=== PATIENT | male | born 1970 | race Caucasian/White ===

== ENCOUNTER 2020-09-06 06:58 | Outpatient (REF) | payer OTHER, SELFPAY ==
[2020-09-06 11:28] LABS: Estimated Average Glucose 318 mg/dL; Hemoglobin A1c % 12.7 %
[2020-09-06 11:46] LABS: Alanine Aminotransferase 9 U/L (0-40); Anion Gap 15 (12-20); Aspartate Amino Transferase 17 U/L (5-37); Blood Urea Nitrogen 55 mg/dL (9-16); Calcium 8.6 mg/dL (8.4-10.2); Carbon Dioxide 24 mmol/L (22-29); Chloride 105 mmol/L (96-108); Cholesterol 266 mg/dL; Estimated Glomerular Filt Rate 34; Glucose Fasting 269 mg/dL (60-99); HDL Cholesterol 54 mg/dL; LDL Cholesterol Calculated 139 mg/dl; Potassium 5.1 mmol/l (3.3-5.1); Sodium 139 mmol/L (135-145); Triglycerides 367 mg/dL
== END 2020-09-06 06:59 | disposition home or self-care (01) ==
LOC: HO.HMGCLDS 06:58
PROVIDERS: PCP Internal Medicine; Visit Provider Internal Medicine
DX: E11.21 Type 2 diabetes mellitus with diabetic nephropathy (principal); E11.3393 Type 2 diabetes mellitus with moderate nonproliferative diabetic retinopathy without macular edema, bilateral; E78.2 Mixed hyperlipidemia; Z79.4 Long term (current) use of insulin
CPT/HCPCS: 36415; 80048; 80061; 83036; 84450; 84460

== ENCOUNTER 2020-12-04 02:59 | Emergency (ER) | payer OTHER, SELFPAY ==
--- NOTE | ~2020-12-04 | XR_ITS ---
EXAMINATION: CHEST 2 VIEWS CLINICAL INFORMATION: Aspiration. COMPARISON: None. TECHNIQUE: PA and lateral views of the chest were obtained. FINDINGS: The cardiac silhouette is not enlarged. The mediastinal and hilar contours are unremarkable. There are neither pleural effusions nor pneumothoraces. There are no consolidations. The osseous structures are unremarkable. XR/XR chest 2V IMPRESSION: No evidence for acute disease.
[2020-12-04 03:00] VITALS: BP 199/85; PULSE 100; RESP 18; TEMP 35.8; O2SAT 99; BMI 37.1
[2020-12-04 04:24] LABS: COVID-19 Test Negative (Negative); IDNOW Serial# 9DD0AD1C
--- NOTE | 2020-12-04 04:38 | ED.GENADULT ---
HPI - General Adult General Chief complaint: General Medical Stated complaint: Cough Time Seen by Provider: 12/04/20 03:24 Source: patient Mode of arrival: ambulatory Limitations: no limitations History of Present Illness HPI narrative: Patient comes emergency room complaining of mild cough, and requesting a COVID-19 test. Patient states that yesterday he started coughing, got Robitussin, states it did help with the cough. However he has sensation that he has parade it and decided to come get checked. Patient denies shortness of breath. Patient states that he has a chronic cough from his lisinopril. MD complaint: Cough Related Data Home Medications Medication Instructions Recorded Confirmed blood sugar diagnostic #10 ea 07/13/20 10/01/20 insulin lispro 100 unit/mL unit SUBCUT 07/13/20 10/01/20 subcutaneous pen pen needle, diabetic 31 gauge x #50 ea 07/13/20 10/01/20 3/16 insulin glargine 100 unit/mL (3 30 unit SUBCUT QAM ml 08/26/20 10/01/20 mL) subcutaneous pen Previous Rx's Medication Instructions Recorded amoxicillin 875 mg-potassium 1 tab PO BID 5 Days #10 tab 07/13/20 clavulanate 125 mg tablet atorvastatin 20 mg tablet 20 mg PO DAILY #90 tab 08/26/20 blood sugar diagnostic #100 ea 08/26/20 chlorthalidone 25 mg tablet 25 mg PO QAM #90 tab 08/26/20 dulaglutide 0.75 mg/0.5 mL 0.75 mg SUBCUT QWEEK #2 ml 08/26/20 subcutaneous pen injector insulin glargine 100 unit/mL (3 30 unit SUBCUT BEDTIME #15 ml 08/26/20 mL) subcutaneous pen lisinopril 10 mg tablet 10 mg PO DAILY #90 tab 08/26/20 amoxicillin 875 mg-potassium 1 tab PO BID #20 tab 10/01/20 clavulanate 125 mg tablet Allergies Allergy/AdvReac Type Severity Reaction Status Date / Time No Known Allergies Allergy Verified 10/01/20 11:01 Review of Systems Review of Systems: Constitutional : No Weight loss, No Fever, No Chills, No Night Sweats, No Fatigue, No Malaise ENT/Mouth : No Hearing loss, No Ear Pain, No Nasal Congestion, No Sinus Pain, No Hoarseness, No sore throat, No Rhinorrhea, No Swallowing Difficulty Eyes: No Eye Pain, No Swelling, No Redness, No Foreign Body, No Discharge, No Vision Changes Cardiovascular : No Chest Pain, No SOB, No Dyspnea on Exertion, No Orthopnea, No Edema, No Palpitations Respiratory : Mild Cough, mild Sputum, No Wheezing, No Smoke Exposure, No Dyspnea Gastrointestinal : No Nausea, No Vomiting, No Diarrhea, No Constipation, No abdominal Pain, No Hematochezia, No Melena Genitourinary : no irregular bleeding, No Dysuria, No Urinary Frequency, No Hematuria, No Urinary Incontinence, No Urgency, No Flank Pain, No Urinary Flow Changes, No Hesitancy Musculoskeletal : No joint pain, No Myalgias, No Joint Swelling Skin : No Skin Lesions, No rash Neuro : No Weakness, No Numbness, No Paresthesias, No Loss of Consciousness, No Dizziness, No Headache Psych : No Anxiety/Panic, No Depression, No SI/HI/AH/VH, No Social Issues, Heme/Lymph: No Bruising, No Bleeding,No Lymphadenopathy Endocrine : No Polyuria, No Polydipsia, No Temperature Intolerance [facility] Past Medical History Medical History Type 2 diabetes mellitus, with long-term current use of insulin Surgical History History of cataract Family History Family History Father Diabetes mellitus Mother Myocardial infarction CVD (cardiovascular disease) Maternal Grandmother Diabetes mellitus HTN (hypertension) Alzheimer's disease Hyperlipidemia Maternal Grandfather Myocardial infarction Social History Social History Advance Directives: No Physical Exam Vital Signs: Vital Signs: Last Vital Signs Temp 96.4 F L 12/04/20 03:00 Pulse 100 12/04/20 03:00 Resp 18 12/04/20 03:00 BP 199/85 H 12/04/20 03:00 Pulse Ox 99 12/04/20 03:00 Body Mass Index 37.1 Appearance: Alert. Oriented X3. No acute distress. Eyes: Pupils equal, round and reactive to light. ENT: Pharynx normal. Neck: Normal inspection. Neck supple. No lymph nodes noted. No crepitus CVS: Normal heart rate and rhythm. Pulses normal. Normal S1 and S2 Respiratory: No respiratory distress. Breath sounds normal. No Wheezing. No rales Abdomen: Soft and nontender. No rigidity. No distention. good BS x4 Skin: Skin warm and dry. Normal skin color. Normal skin turgor. Extremities: No lower extremity edema. No lower extremity edema. No Lacerations. No Rash Neuro: Oriented X 3. No motor deficit. No sensory deficit. Moving all extermities. No slurred speech. Course Course Course Narrative: Unlikely the patient aspirated, otherwise patient feels very well, not coughing in the ED, COVID negative . Patient states that he has enough Robitussin at home, states that he does not need an additional prescription. Medical Decision Making Lab Data Labs: Lab Results 12/04/20 Range/Units 03:57 COVID-19 (PB) Negative (Negative) COVID-19 Clin Com See Note Imaging Data Chest x-ray: Radiologist's impression: PA and lateral views of the chest were obtained. FINDINGS: The cardiac silhouette is not enlarged. The mediastinal and hilar contours are unremarkable. There are neither pleural effusions nor pneumothoraces. There are no consolidations. The osseous structures are unremarkable. Discharge Plan Discharge Clinical Impression: Cough Patient Disposition: Home, Self-Care Instructions: Acute Cough (ED) Additional Instructions: You tested negative for COVID-19. Please follow-up with your primary care physician tomorrow. If you have any worsening or new symptoms, please return to the emergency room or call 911 Prescriptions: No Action dulaglutide 0.75 mg/0.5 mL pen injector 0.75 mg subcut QWEEK Qty: 2 RF: 7 lisinopril 10 mg tablet 10 mg PO DAILY Qty: 90 RF: 1 chlorthalidone 25 mg tablet 25 mg PO QAM Qty: 90 RF: 0 atorvastatin 20 mg tablet 20 mg PO DAILY Qty: 90 RF: 1 insulin glargine 100 unit/mL (3 mL) insulin pen 30 unit subcut BEDTIME Qty: 15 RF: 5 (DME) FreeStyle Test Strip See Rx Instructions .ROUTE .MEDSUPPLY Qty: 100 RF: 6 Lantus Solostar U-100 Insulin 100 unit/mL (3 mL) insulin pen 30 unit subcut QAM RF: 0 amoxicillin-pot clavulanate [Augmentin] 875-125 mg tablet 1 tab PO BID Qty: 20 RF: 0 insulin lispro 100 unit/mL insulin pen subcut RF: 0 (DME) pen needle, diabetic 31 gauge x 3/16 needle See Rx Instructions ea subcut TID Qty: 50 RF: 0 (DME) FreeStyle Lite Strips Strip See Rx Instructions strip Not Applicable TID Qty: 10 RF: 0 amoxicillin-pot clavulanate [Augmentin] 875-125 mg tablet 1 tab PO BID 5 Days Qty: 10 RF: 0
== END 2020-12-04 05:13 | disposition home or self-care (01) ==
PROVIDERS: Nurse Practitioner Family; Emergency Provider Emergency Medicine; PCP Internal Medicine
DX: R05 Cough (principal); Z20.822 Contact with and (suspected) exposure to COVID-19; E11.9 Type 2 diabetes mellitus without complications; Z79.4 Long term (current) use of insulin
CPT/HCPCS: 36415; 71046; 87635; 99283

== ENCOUNTER 2021-04-20 07:13 | Outpatient (REF) | payer OTHER, SELFPAY ==
[2021-04-20 11:55] LABS: Alanine Aminotransferase 9 U/L (0-40); Anion Gap 11 (12-20); Aspartate Amino Transferase 20 U/L (5-37); Blood Urea Nitrogen 24 mg/dL (9-16); Calcium 8.6 mg/dL (8.4-10.2); Carbon Dioxide 25 mmol/L (22-29); Chloride 109 mmol/L (96-108); Cholesterol 271 mg/dL; Estimated Glomerular Filt Rate 51; Glucose Fasting 84 mg/dL (60-99); HDL Cholesterol 60 mg/dL; LDL Cholesterol Calculated 179 mg/dl; Potassium 4.8 mmol/L (3.3-5.1); Sodium 140 mmol/L (135-145); Triglycerides 161 mg/dL
[2021-04-20 12:06] LABS: Estimated Average Glucose 120 mg/dL; Hemoglobin A1c % 5.8 %
== END 2021-04-20 07:14 | disposition home or self-care (01) ==
LOC: HO.HMGCLDS 07:13
PROVIDERS: PCP Internal Medicine; Visit Provider Internal Medicine
DX: E11.9 Type 2 diabetes mellitus without complications (principal); E78.5 Hyperlipidemia, unspecified; I10 Essential (primary) hypertension; Z79.4 Long term (current) use of insulin
CPT/HCPCS: 36415; 80048; 80061; 83036; 84450; 84460

== ENCOUNTER 2021-06-14 08:00 | Emergency (ER) | payer OTHER, SELFPAY ==
--- NOTE | ~2021-06-14 | XR_ITS ---
EXAMINATION: XR CHEST CLINICAL INFORMATION: Chest pain. SOB. COMPARISON: Chest 12/04/2020 TECHNIQUE: Frontal view of the chest was obtained. FINDINGS: The lungs are well-expanded and clear of acute pneumonic process. The heart size and pulmonary vascularity is normal. No gross bony abnormality seen. XR/XR chest 1V IMPRESSION: Unremarkable chest exam. No change from 12/04/2020
--- NOTE | ~2021-06-14 | CT_ITS ---
EXAMINATION: CT CHEST WITHOUT CONTRAST CLINICAL INFORMATION: Shortness of breath and productive cough COMPARISON: Previous chest x-ray from earlier the same day TECHNIQUE: Multidetector volumetric CT imaging of the chest was done. Axial MIP volume rendering provided. Sagittal and coronal reformatted images were obtained. This CT examination was performed using dose optimization techniques as appropriate, variously including the following: *Automated exposure control *Adjustment of mA and/or kV according to patient size (this includes techniques or standardized protocols for targeted exams where dose is matched to indication/reason for exam; i.e. extremities or head) *Use of iterative reconstruction technique DLP: 420 mGy-cm FINDINGS: POLITICAL AIDE: Unremarkable LUNGS: There is increased groundglass attenuation seen in the central posterior segment of the right upper lobe for example axial image 186 series 4. There is subsegmental atelectasis in the more peripheral posterior segment of the right upper lobe adjacent to the major fissure. There are 2 small left upper lobe nodules measuring 3 mm axial image 198 series 4. There are scattered small areas of increased groundglass attenuation in the right middle lobe. The largest measures approximately 7 mm axial image 225 series 4. There are small scattered areas of increased groundglass attenuation in the right lower lobe, largest measuring 5 mm. There is increased attenuation and subsegmental atelectasis in the bilateral lower lobes adjacent to the pleural effusions. MEDIASTINUM: There is coronary artery calcification. The heart does not appear enlarged. There is a trace pericardial effusion. There are small mediastinal lymph nodes. No enlarged lymph nodes are seen. The thoracic aorta is normal in caliber. The thyroid gland is normal. PLEURA: There are small bilateral pleural effusions, right greater than left. There is no pneumothorax. AXILLA: No lymphadenopathy. UPPER ABDOMEN: There are gallstones in the gallbladder. OSSEOUS STRUCTURES: Unremarkable. CT/CT chest wo con IMPRESSION: There are scattered small areas of groundglass attenuation seen in the right upper, middle and lower lobes, question representing areas of pneumonitis. Small bilateral pleural effusions right greater than left and compressive atelectasis of the adjacent bilateral lower lobes.
[2021-06-14 08:13] VITALS: BP 194/07; PULSE 112; RESP 18; TEMP 37.1; O2SAT 97; BMI 35.5
--- NOTE | 2021-06-14 08:26 | ECG_ITS ---
Test Reason : DYSPNEA Blood Pressure : / mmHG Vent. Rate : 100 BPM Atrial Rate : 100 BPM P-R Int : 122 ms QRS Dur : 128 ms QT Int : 384 ms P-R-T Axes : 040 094 -11 degrees QTc Int : 495 ms Normal sinus rhythm Right bundle branch block Nonspecific ST abnormality Inferior leads Abnormal ECG No previous ECGs available Referred By: Racquel Motta Electronically Signed By:POLINA WELLS MD
[2021-06-14 08:36] VITALS: BP 165/89; PULSE 101; RESP 15; O2SAT 97
--- NOTE | 2021-06-14 09:10 | ED_ITS ---
HPI - SOB/Dyspnea General Chief Complaint: Dyspnea Stated Complaint: wheezing, diff breathing, fever Time Seen by Provider: 06/14/21 08:20 Source: patient Mode of arrival: ambulatory Limitations: no limitations History of Present Illness HPI Narrative: 51-year-old male with a past medical history of hypertension, hy perlipidemia, insulin-dependent diabetes here with complaints of low-grade fever, nonproductive cough, shortness of breath, chest tightness since Sunday. Grandchildren at home are sick with RSV. No leg swelling or pain. No vomiting, diarrhea, abdominal pain. Patient is fully vaccinated with the iPourit vaccine and September of 2020. He has not received his booster. Related Data Home Medications Medication Instructions Recorded Confirmed blood sugar diagnostic #10 ea 07/13/20 04/26/21 insulin glargine 100 unit/mL (3 30 unit SUBCUT BEDTIME ml 04/26/21 04/26/21 mL) subcutaneous pen Previous Rx's Medication Instructions Recorded blood sugar diagnostic (FreeStyle #100 ea 08/26/20 Test) Humalog KwikPen Insulin 100 See Rx Instructions SUBCUT TID #15 02/05/21 unit/mL subcutaneous (insulin ml NS lispro) chlorthalidone 25 mg tablet 25 mg PO QAM #90 tab 02/24/21 lancets 28 gauge (FreeStyle #100 ea 04/19/21 Lancets) dulaglutide 1.5 mg/0.5 mL 1.5 mg SUBCUT QWEEK #2 ml 04/26/21 subcutaneous pen injector (Trulicity) pen needle, diabetic 31 gauge x #100 ea 04/27/21 3/16 atorvastatin 20 mg tablet 20 mg PO DAILY #90 tab 04/28/21 lisinopril 10 mg tablet 10 mg PO DAILY #90 tab 04/28/21 azithromycin 250 mg tablet See Rx Instructions .ROUTE 06/14/21 .COMPLEX #6 tab prednisone 20 mg tablet 40 mg PO DAILY #10 tab 06/14/21 Allergies Allergy/AdvReac Type Severity Reaction Status Date / Time No Known Allergies Allergy Verified 04/26/21 11:54 Review of Systems Review of Systems: Yes all other systems are reviewed and are negative Constitutional: Constitutional: Reports no additional constitutional complaints, Denies body ache(s), Denies chills, Reports fever(s), Denies headach e(s) and Denies weakness Eyes: Eyes: Reports no additional eye complaints and Denies change in vision ENT: Reports system reviewed and no additional complaints, except as documented, Denies dizziness, Denies headache(s), Denies nasal congestion, Denies nasal discharge and Denies neck pain Cardiovascular: Cardiovascular: Reports no additional cardiovascular com plaints, Reports chest pain, Denies leg edema and Reports dyspnea Respiratory: Respiratory: Reports no additional respiratory complaints, Reports cough and Reports dyspnea Gastrointestinal: Gastrointestinal: Reports no additional gastrointestinal complaints, Denies abdominal pain, Denies diarrhea, Denies nausea and Denies vomiting Genitourinary: Genitourinary: Denies urinary incontinence Musculoskeletal: Musculoskeletal: Reports no additional musculoskeletal complaints, Denies back pain, Denies arthralgias, Denies joint swelling, Denies neck pain, Denies numbness and Denies tingling Integumentary/Breasts: Skin/Breast: Reports system reviewed and no additional complaints, except as docu and Denies rash Neurologic: Reports system reviewed and no additional complaints, except as documented, Denies Abnormal speech present, Denies dizziness, Denies headache(s), Denies numbness, Denies tingling and Denies weakness PMFSH Past Medical History Attestation statement: The following information was validated with the patient. Source: old records reviewed and nursing notes reviewed Medical History Dyslipidemia Essential hypertension Type 2 diabetes mellitus, with long-term current use of insulin Surgical History History of cataract Family History Family History Father Diabetes mellitus Mother Myocardial infarction CVD (cardiovascular disease) Maternal Grandmother Diabetes mellitus HTN (hypertension) Alzheimer's disease Hyperlipidemia Maternal Grandfather Myocardial infarction Social History Social History Housing: Apartment Alcohol intake: never Patient Tobacco Use Status: Never used Tobacco e-Cigarette/Vaping Use: Never Used Second Hand Smoke Exposure: No Use of substances other than those prescribed or required for medical reasons: No Advance Directives: No service: No Current occupational status: employed Physical Exam Vital Signs: Vital Signs: Last Vital Signs Temp 98.9 F 06/14/21 12:55 Pulse 96 06/14/21 12:55 Resp 14 06/14/21 12:55 BP 160/91 H 06/14/21 12:55 Pulse Ox 97 06/14/21 14:06 Body Mass Index 35.5 Const: General: cooperative, healthy appearing, comfortable and no acute distress Orientation/consciousness: patient oriented x3 Limitations: no limitations HENMT: Head: Yes normal to inspection Ears: hearing grossly normal bilaterally and TM's normal bilaterally General nose exam: Normal external nose present Face and sinus: Yes normal facial exam Mouth: Normal oral and palatal mucosa present Throat: Yes posterior oropharynx normal, Yes tonsils normal and Yes uvula midline Eyes: General: appearance normal, both eyes and all related structures Pupils: Equal, round and reactive pupils present Neck: Neck: Yes normal visual inspection, Yes full ROM and Yes no lymphadenopathy Chest: Chest palpation & inspection: normal inspection of the chest Resp: Effort & Inspection: normal respiratory effort Auscultation: clear to auscultation bilaterally Cardio: Rate: regular rate Rhythm: regular rhythm Peripheral pulses: Peripheral pulses 2+ throughout GI: Inspection: Yes normal to inspection Palpation (GI): Soft to palpation and nontender Auscultation: normal bowel sounds Back/Spine/Pelvis: Thoracic/Lumbar Spine: thoracic and lumbar spine normal to inspection Skin: General skin exam: no rashes or lesions noted Neuro: General: patient oriented x3, no focal motor deficits and normal sensation to monofilament Cranial nerves: Yes Equal, round and reactive pupils present Cognition (Neuro): normal cognition Speech: No Abnormal speech present Gait exam (Neuro): Normal gait present Motor exam (neuro): 5/5 motor strength present throughout Extrem: General: Yes normal to inspection, Yes no pedal edema and Yes no calf tenderness Course Course Course Narrative: 51-year-old male here with complaints of low-grade fever, shortness of breath, cough, chest tightness for several days. Patient did have contact with his grandchildren who are are RSV positive. On arrival the patient appears well. Lung sounds are clear. Speaking full sentences. Will check chest x-ray, EKG, labs and COVID screen. 0958-chest x-ray shows no acute finding. Initial troponin mildly elevated. Atypical chest pain less likely ACS. Plan for repeat 3 hour troponin. Troponin likely secondary to elevated creatinine which is slightly increased from baseline. COVID and RSV swab negative. Consider PE. And on D-dimer [id number] elevated mildly elevated. Consider CTA however d/t CKD unable to perform test. Shared decision making at bedside with patient and . Will order CT chest w/o contrast to check for occult PNA. If negative then pursue VQ scan. 1430-repeat troponin unchanged. Less likely ACS. Likely elevated from ckd. CT chest shows There are scattered small areas of groundglass attenuation seen in the right upper, middle and lower lobes, question representing areas of pneumonitis. Small bilateral pleural effusions right greater than left and compressive atelectasis of the adjacent bilateral lower lobes. I spoke to both the patient and his . I believe that PE is less likely with only mildly elevated D-dimer and a CT scan of the chest which shows pneumonitis. Therefore shared decision making to not pursue V/Q scan. Will treat the patient with a course of antibiotics and steroids. Have him follow-up with his primary care doctor outpatient. He did ambulate around the department with an oxygen saturation greater than 98%. I reviewed worrisome signs and symptoms of when to return to the emergency department. Comfortable discharge home. MDM - SOB/Dyspnea MDM Narrative Medical decision making narrative: Pneumonia viral syndrome COVID Medical Records Attestation: I reviewed the patient's medical records. Lab Data Attestation: I reviewed the patient's lab results. Result diagrams: 06/14/21 09:04 06/14/21 09:04 Labs: Lab Results 06/14/21 06/14/21 06/14/21 Range/Units 09:04 09:04 09:04 WBC 10.6 (4.8-10.8) X10*3/uL RBC 4.62 (4.60-5.80) X10*6/uL Hgb 13.5 L (14.0-18.0) g/dl Hct 40.2 L (42-52) % MCV 87.0 (80-98) fL MCH 29.2 (27.0-33.0) pg MCHC 33.6 (31.0-36.0) g/dl RDW 13.9 (11.0-16.0) % Plt Count 267 (160-400) X10*3/uL MPV 9.2 L (9.4-12.4) fL Immature Gran % (Auto) 0.5 H (0.0-0.4) % Neut % (Auto) 81.1 H (45-73) % Lymph % (Auto) 9.9 L (20-40) % Johnson % (Auto) 6.1 (2-11) % Eos % (Auto) 2.1 (0-4) % Baso % (Auto) 0.3 (0-2) % Lymph # (Auto) 1.1 L (1.2-4.9) X10*3/uL Johnson # (Auto) 0.6 (0.1-1.2) X10*3/uL Eos # (Auto) 0.2 (0.0-0.4) X10*3/uL Baso # (Auto) 0.0 (0.0-0.2) X10*3/uL Abs Immat Gran (auto) 0.05 H (0.00-0.03) X10*3/uL Absolute Neuts (auto) 8.6 H (2.0-8.3) X10*3/uL Absolute Nucleated RBC 0.000 (0.0-0.012) X10*3/uL Nucleated RBC % (auto) 0.0 (0.0-0.2) /100WBC PT (9.9-13.0) SEC INR (0.9-1.1) D-Dimer NG/ML Sodium 142 (135-145) mmol/L Potassium 4.5 (3.3-5.1) mmol/L Chloride 110 H (96-108) mmol/L Carbon Dioxide 25 (22-29) mmol/L Anion Gap 12 (12-20) BUN 30 H (9-16) mg/dL Creatinine 1.74 H (0.5-1.4) mg/dL Estim Creat Clear Calc 55.5 Estimated GFR 42 Random Glucose 181 H (60-115) mg/dL Lactic Acid 1.5 (0.5-2.0) mmol/L Calcium 7.7 L D (8.4-10.2) mg/dL Magnesium 2.1 (1.6-2.6) mg/dL Total Bilirubin 0.3 (0.0-1.0) mg/dL Direct Bilirubin < 0.2 (0.0-0.5) mg/dL AST 18 (5-37) U/L ALT 11 (0-40) U/L Alkaline Phosphatase 78 (39-117) U/L Troponin I High Sens (<3.5-35.0) ng/L B-Natriuretic Peptide (<100) pg/mL Total Protein 5.2 L (6.5-8.0) g/dL Albumin 3.1 L (3.5-5.0) g/dL Coronavirus (PCR) (Negative) Influenza Type A (PCR) (Negative) Influenza Type B (PCR) (Negative) RSV RNA Qual (PCR) (Negative) 06/14/21 06/14/21 06/14/21 Range/Units 09:04 09:04 11:22 WBC (4.8-10.8) X10*3/uL RBC (4.60-5.80) X10*6/uL Hgb (14.0-18.0) g/dl Hct (42-52) % MCV (80-98) fL MCH (27.0-33.0) pg MCHC (31.0-36.0) g/dl RDW (11.0-16.0) % Plt Count (160-400) X10*3/uL MPV (9.4-12.4) fL Immature Gran % (Auto) (0.0-0.4) % Neut % (Auto) (45-73) % Lymph % (Auto) (20-40) % Johnson % (Auto) (2-11) % Eos % (Auto) (0-4) % Baso % (Auto) (0-2) % Lymph # (Auto) (1.2-4.9) X10*3/uL Johnson # (Auto) (0.1-1.2) X10*3/uL Eos # (Auto) (0.0-0.4) X10*3/uL Baso # (Auto) (0.0-0.2) X10*3/uL Abs Immat Gran (auto) (0.00-0.03) X10*3/uL Absolute Neuts (auto) (2.0-8.3) X10*3/uL Absolute Nucleated RBC (0.0-0.012) X10*3/uL Nucleated RBC % (auto) (0.0-0.2) /100WBC PT 10.2 (9.9-13.0) SEC INR 0.9 (0.9-1.1) D-Dimer 243 NG/ML Sodium (135-145) mmol/L Potassium (3.3-5.1) mmol/L Chloride (96-108) mmol/L Carbon Dioxide (22-29) mmol/L Anion Gap (12-20) BUN (9-16) mg/dL Creatinine (0.5-1.4) mg/dL Estim Creat Clear Calc Estimated GFR Random Glucose (60-115) mg/dL Lactic Acid (0.5-2.0) mmol/L Calcium (8.4-10.2) mg/dL Magnesium (1.6-2.6) mg/dL Total Bilirubin (0.0-1.0) mg/dL Direct Bilirubin (0.0-0.5) mg/dL AST (5-37) U/L ALT (0-40) U/L Alkaline Phosphatase (39-117) U/L Troponin I High Sens 131.0 H* (<3.5-35.0) ng/L B-Natriuretic Peptide 99 (<100) pg/mL Total Protein (6.5-8.0) g/dL Albumin (3.5-5.0) g/dL Coronavirus (PCR) NEGATIVE (Negative) Influenza Type A (PCR) NEGATIVE (Negative) Influenza Type B (PCR) NEGATIVE (Negative) RSV RNA Qual (PCR) NEGATIVE (Negative) 06/14/21 Range/Units 12:52 WBC (4.8-10.8) X10*3/uL RBC (4.60-5.80) X10*6/uL Hgb (14.0-18.0) g/dl Hct (42-52) % MCV (80-98) fL MCH (27.0-33.0) pg MCHC (31.0-36.0) g/dl RDW (11.0-16.0) % Plt Count (160-400) X10*3/uL MPV (9.4-12.4) fL Immature Gran % (Auto) (0.0-0.4) % Neut % (Auto) (45-73) % Lymph % (Auto) (20-40) % Johnson % (Auto) (2-11) % Eos % (Auto) (0-4) % Baso % (Auto) (0-2) % Lymph # (Auto) (1.2-4.9) X10*3/uL Johnson # (Auto) (0.1-1.2) X10*3/uL Eos # (Auto) (0.0-0.4) X10*3/uL Baso # (Auto) (0.0-0.2) X10*3/uL Abs Immat Gran (auto) (0.00-0.03) X10*3/uL Absolute Neuts (auto) (2.0-8.3) X10*3/uL Absolute Nucleated RBC (0.0-0.012) X10*3/uL Nucleated RBC % (auto) (0.0-0.2) /100WBC PT (9.9-13.0) SEC INR (0.9-1.1) D-Dimer NG/ML Sodium (135-145) mmol/L Potassium (3.3-5.1) mmol/L Chloride (96-108) mmol/L Carbon Dioxide (22-29) mmol/L Anion Gap (12-20) BUN (9-16) mg/dL Creatinine (0.5-1.4) mg/dL Estim Creat Clear Calc Estimated GFR Random Glucose (60-115) mg/dL Lactic Acid (0.5-2.0) mmol/L Calcium (8.4-10.2) mg/dL Magnesium (1.6-2.6) mg/dL Total Bilirubin (0.0-1.0) mg/dL Direct Bilirubin (0.0-0.5) mg/dL AST (5-37) U/L ALT (0-40) U/L Alkaline Phosphatase (39-117) U/L Troponin I High Sens 155.8 H* (<3.5-35.0) ng/L B-Natriuretic Peptide (<100) pg/mL Total Protein (6.5-8.0) g/dL Albumin (3.5-5.0) g/dL Coronavirus (PCR) (Negative) Influenza Type A (PCR) (Negative) Influenza Type B (PCR) (Negative) RSV RNA Qual (PCR) (Negative) Imaging Data Chest x-ray: Attestation: I personally reviewed and interpreted this imaging study as follows: Radiologist's impression: EXAMINATION: XR CHEST CLINICAL INFORMATION: Chest pain. SOB. COMPARISON: Chest 12/04/2020 TECHNIQUE: Frontal view of the chest was obtained. FINDINGS: The lungs are well-expanded and clear of acute pneumonic process. The heart size and pulmonary vascularity is normal. No gross bony abnormality seen. XR/XR chest 1V IMPRESSION: Unremarkable chest exam. No change from 12/04/2020 CT scan - chest: Attestation: I personally reviewed and interpreted this imaging study as follows: Radiologist's impression: LUNGS: There is increased groundglass attenuation seen in the central posterior segment of the right upper lobe for example axial image 186 series 4. There is subsegmental atelectasis in the more peripheral posterior segment of the right upper lobe adjacent to the major fissure. There are 2 small left upper lobe nodules measuring 3 mm axial image 198 series 4. There are scattered small areas of increased groundglass attenuation in the right middle lobe. The largest measures approximately 7 mm axial image 225 series 4. There are small scattered areas of increased groundglass attenuation in the right lower lobe, largest measuring 5 mm. There is increased attenuation and subsegmental atelectasis in the bilateral lower lobes adjacent to the pleural effusions. MEDIASTINUM: There is coronary artery calcification. The heart does not appear enlarged. There is a trace pericardial effusion. There are small mediastinal lymph nodes. No enlarged lymph nodes are seen. The thoracic aorta is normal in caliber. The thyroid gland is normal. PLEURA: There are small bilateral pleural effusions, right greater than left. There is no pneumothorax. AXILLA: No lymphadenopathy.? UPPER ABDOMEN: There are gallstones in the gallbladder.? OSSEOUS STRUCTURES: Unremarkable.? CT/CT chest wo con IMPRESSION: There are scattered small areas of groundglass attenuation seen in the right upper, middle and lower lobes, question representing areas of pneumonitis. Small bilateral pleural effusions right greater than left and compressive atelectasis of the adjacent bilateral lower lobes. ECG Data Attestation: I personally reviewed and interpreted this ECG as follows: ECG interpretation date: 06/14/21 ECG interpretation time: 08:48 Interpretation: Normal sinus rhythm with a rate of 100, normal [place], normal QRS,RBBB Discharge Plan Discharge Clinical Impression: Pneumonitis, CKD (chronic kidney disease) Patient Disposition: Home, Self-Care Instructions: Pneumonitis (ED), Chronic Kidney Disease (ED) Additional Instructions: Increase fluids, rest Take Motrin or Tylenol as needed Follow-up with your primary care doctor. You do need to see him to arrange a sleep apnea machine Return for fever greater than 100.4, worsening shortness of breath or chest pain Follow-up with your primary care doctor Prescriptions: New azithromycin 250 mg tablet See Rx Instructions .ROUTE .COMPLEX Qty: 6 RF: 0 prednisone 20 mg tablet 40 mg PO DAILY Qty: 10 RF: 0 No Action (DME) FreeStyle Test Strip See Rx Instructions .ROUTE .MEDSUPPLY Qty: 100 RF: 6 insulin lispro [Humalog KwikPen Insulin] 100 unit/mL insulin pen See Rx Instructions subcut TID Qty: 15 RF: 3 chlorthalidone 25 mg tablet 25 mg PO QAM Qty: 90 RF: 0 (DME) lancets [FreeStyle Lancets] 28 gauge misc See Rx Instructions .Route Qty: 100 RF: 5 (DME) pen needle, diabetic 31 gauge x 3/16 needle See Rx Instructions ea subcut TID Qty: 100 RF: 5 atorvastatin 20 mg tablet 20 mg PO DAILY Qty: 90 RF: 1 lisinopril 10 mg tablet 10 mg PO DAILY Qty: 90 RF: 1 (DME) FreeStyle Lite Strips Strip See Rx Instructions strip Not Applicable TID Qty: 10 RF: 0 insulin glargine 100 unit/mL (3 mL) insulin pen 30 unit subcut BEDTIME RF: 0 Trulicity 1.5 mg/0.5 mL pen injector 1.5 mg subcut QWEEK Qty: 2 RF: 5 Referrals: Zee Carrera MD [Primary Care Provider] - 2 days Stand Alone Forms: Work/School Release Interventions: ED Discharge Assessment Last Done: 06/14/21 14:31 Discharge Date/Time: 06/14/21 14:32
[2021-06-14 09:26] LABS: MANUAL DIFF FLAG NO
[2021-06-14 09:27] LABS: Basophils Percent Auto 0.3 % (0-2); Eosinophils Absolute Auto 0.2 X10*3/uL (0.0-0.4); Eosinophils Percent Auto 2.1 % (0-4); Hematocrit 40.2 % (42-52); Hemoglobin 13.5 g/dl (14.0-18.0); Imm Gran Abs Auto 0.05 X10*3/uL (0.00-0.03); Imm Gran Pct Auto 0.5 % (0.0-0.4); Lymphocytes Absolute Auto 1.1 X10*3/uL (1.2-4.9); Lymphocytes Percent Auto 9.9 % (20-40); Mean Corpuscular HGB Conc 33.6 g/dl (31.0-36.0); Mean Corpuscular Hemoglobin 29.2 pg (27.0-33.0); Mean Platelet Volume 9.2 fL (9.4-12.4); Monocytes Absolute Auto 0.6 X10*3/uL (0.1-1.2); Monocytes Percent Auto 6.1 % (2-11); Neutrophils Absolute Auto 8.6 X10*3/uL (2.0-8.3); Neutrophils Percent Auto 81.1 % (45-73); Platelet Count 267 X10*3/uL (160-400); Red Blood Count 4.62 X10*6/uL (4.60-5.80); Red Cell Distribution Width 13.9 % (11.0-16.0); White Blood Count 10.6 X10*3/uL (4.8-10.8)
[2021-06-14 09:38] LABS: Lactic Acid 1.5 mmol/L (0.5-2.0)
[2021-06-14 09:45] LABS: Alanine Aminotransferase 11 U/L (0-40); Albumin Level 3.1 g/dL (3.5-5.0); Alkaline Phosphatase 78 U/L (39-117); Anion Gap 12 (12-20); Aspartate Amino Transferase 18 U/L (5-37); Bilirubin Direct < 0.2 mg/dL (0.0-0.5); Bilirubin Total 0.3 mg/dL (0.0-1.0); Blood Urea Nitrogen 30 mg/dL (9-16); Calcium 7.7 mg/dL (8.4-10.2); Carbon Dioxide 25 mmol/L (22-29); Chloride 110 mmol/L (96-108); Creatinine Clr Calc Pharmacy 55.5; Estimated Glomerular Filt Rate 42; Glucose Random 181 mg/dL (60-115); Magnesium 2.1 mg/dL (1.6-2.6); Potassium 4.5 mmol/L (3.3-5.1); Sodium 142 mmol/L (135-145); Total Protein 5.2 g/dL (6.5-8.0)
[2021-06-14 09:52] LABS: B Type Natriuretic Peptide 99 pg/mL (<100)
[2021-06-14 10:05] LABS: Influenza A PCR NEGATIVE (Negative); Influenza B PCR NEGATIVE (Negative); Resp Syncy Virus RNA Qual PCR NEGATIVE (Negative); SARS COV2 PCR INHOUSE NEGATIVE (Negative)
[2021-06-14 11:23] VITALS: BP 160/90; PULSE 99; RESP 16; O2SAT 98
[2021-06-14 11:36] LABS: INTERNATIONAL NORM RATIO 0.9 (0.9-1.1); Prothrombin Time 10.2 SEC (9.9-13.0)
[2021-06-14 11:40] LABS: D Dimer 243 NG/ML
[2021-06-14] MEDS: 0.9 % Sodium Chloride 500 ML 999 ML IV (12:02)
[2021-06-14 12:55] VITALS: BP 160/91; PULSE 96; RESP 14; TEMP 37.2; O2SAT 98
[2021-06-14] MEDS: Acetaminophen 325 MG TABLET 975 MG PO (13:06)
[2021-06-14 13:40] LABS: Troponin-I High Sensitivity 155.8 ng/L (<3.5-35.0)
[2021-06-14 14:06] VITALS: O2SAT 97
== END 2021-06-14 14:32 | disposition home or self-care (01) ==
PROVIDERS: Nurse Practitioner Family; Emergency Provider Emergency Medicine; PCP Internal Medicine
DX: J18.9 Pneumonia, unspecified organism (principal); E11.22 Type 2 diabetes mellitus with diabetic chronic kidney disease; I12.9 Hypertensive chronic kidney disease with stage 1 through stage 4 chronic kidney disease, or unspecified chronic kidney disease; N18.9 Chronic kidney disease, unspecified; R06.02 Shortness of breath; E78.5 Hyperlipidemia, unspecified; Z79.4 Long term (current) use of insulin; Z20.822 Contact with and (suspected) exposure to COVID-19
CPT/HCPCS: 0241U; 36415; 71045; 71250; 80048; 80076; 83605; 83735; 83880; 84484; 85025; 85379; 85610; 87040; 93005; 96360; 99284; 99285

== ENCOUNTER 2021-08-16 09:11 | Emergency (ER) | payer OTHER, SELFPAY ==
[2021-08-16 09:19] VITALS: BP 185/93; PULSE 97; RESP 17; TEMP 36.9; O2SAT 99; BMI 35.5
--- NOTE | 2021-08-16 10:19 | ED.LOWEXIN ---
HPI - Extremity Injury (Lower) General Chief Complaint: Extremity Injury, Lower Stated Complaint: Left Foot Injury 08/16/21 Time Seen by Provider: 08/16/21 10:11 Source: patient Mode of arrival: ambulatory Limitations: no limitations History of Present Illness HPI Narrative: patient comes emergency room complaining of left foot pain. Patient states it started yesterday on the bottom of the foot, in the arch. Patient denies Any injury.Patient states that they worsen today with walking. Patient states that he had a popping sensation. Patient is able to bear weight and walk, it just hurts. Related Data Home Medications Medication Instructions Recorded Confirmed blood sugar diagnostic #10 ea 07/13/20 04/26/21 insulin glargine 100 unit/mL (3 30 unit SUBCUT BEDTIME ml 04/26/21 04/26/21 mL) subcutaneous pen Previous Rx's Medication Instructions Recorded blood sugar diagnostic (FreeStyle #100 ea 08/26/20 Test) Humalog KwikPen Insulin 100 See Rx Instructions SUBCUT TID #15 02/05/21 unit/mL subcutaneous (insulin ml NS lispro) chlorthalidone 25 mg tablet 25 mg PO QAM #90 tab 02/24/21 lancets 28 gauge (FreeStyle #100 ea 04/19/21 Lancets) dulaglutide 1.5 mg/0.5 mL 1.5 mg (0.5 mL) SUBCUT QWEEK #2 ml 04/26/21 subcutaneous pen injector (Trulicity) pen needle, diabetic 31 gauge x #100 ea 04/27/21 3/16 atorvastatin 20 mg tablet 20 mg PO DAILY #90 tab 04/28/21 lisinopril 10 mg tablet 10 mg PO DAILY #90 tab 04/28/21 azithromycin 250 mg tablet See Rx Instructions .ROUTE 06/14/21 .COMPLEX #6 tab prednisone 20 mg tablet 40 mg PO DAILY #10 tab 06/14/21 Allergies Allergy/AdvReac Type Severity Reaction Status Date / Time No Known Allergies Allergy Verified 04/26/21 11:54 Review of Systems Review of Systems: Constitutional : No Weight loss, No Fever, No Chills, No Night Sweats, No Fatigue, No Malaise ENT/Mouth : No Hearing loss, No Ear Pain, No Nasal Congestion, No Sinus Pain, No Hoarseness, No sore throat, No Rhinorrhea, No Swallowing Difficulty Eyes: No Eye Pain, No Swelling, No Redness, No Foreign Body, No Discharge, No Vision Changes Cardiovascular : No Chest Pain, No SOB, No Dyspnea on Exertion, No Orthopnea, No Edema, No Palpitations Respiratory : No Cough, No Sputum, No Wheezing, No Smoke Exposure, No Dyspnea Gastrointestinal : No Nausea, No Vomiting, No Diarrhea, No Constipation, No abdominal Pain, No Hematochezia, No Melena Genitourinary : no irregular bleeding, No Dysuria, No Urinary Frequency, No Hematuria, No Urinary Incontinence, No Urgency, No Flank Pain, No Urinary Flow Changes, No Hesitancy Musculoskeletal : Complaining pain in the arch of the foot, No Myalgias, No Joint Swelling Skin : No Skin Lesions, No rash Neuro : No Weakness, No Numbness, No Paresthesias, No Loss of Consciousness, No Dizziness, No Headache Psych : No Anxiety/Panic, No Depression, No SI/HI/AH/VH, No Social Issues, Heme/Lymph: No Bruising, No Bleeding,No Lymphadenopathy Endocrine : No Polyuria, No Polydipsia, No Temperature Intolerance [facility] Past Medical History Medical History Dyslipidemia Essential hypertension Type 2 diabetes mellitus, with long-term current use of insulin Surgical History History of cataract Family History Family History Father Diabetes mellitus Mother Myocardial infarction CVD (cardiovascular disease) Maternal Grandmother Diabetes mellitus HTN (hypertension) Alzheimer's disease Hyperlipidemia Maternal Grandfather Myocardial infarction Social History Social History Housing: Apartment Alcohol intake: never Patient Tobacco Use Status: Never used Tobacco e-Cigarette/Vaping Use: Never Used Second Hand Smoke Exposure: No Advance Directives: No Advance Directives Information Provided: No service: No Current occupational status: employed Physical Exam Vital Signs: Vital Signs: Last Vital Signs Temp 98.4 F 08/16/21 09:19 Pulse 97 08/16/21 09:19 Resp 17 08/16/21 09:19 BP 185/93 H 08/16/21 09:19 Pulse Ox 99 08/16/21 09:19 BMI result Body Mass Index 35.5 Const: Other: Appearance: Alert. Oriented X3. No acute distress. Eyes: Pupils equal, round and reactive to light. ENT: Pharynx normal. Neck: Normal inspection. Neck supple. No lymph nodes noted. No crepitus CVS: Normal heart rate and rhythm. Pulses normal. Normal S1 and S2 Respiratory: No respiratory distress. Breath sounds normal. No Wheezing. No rales Abdomen: Soft and nontender. No rigidity. No distention. good BS x4 Skin: Skin warm and dry. Normal skin color. Normal skin turgor. Extremities: No lower extremity edema. feet look normal, no significant pain to palpation over the heel or arch. Skin is intact, no erythema, no swelling Neuro: Oriented X 3. No motor deficit. No sensory deficit. Moving all extermities. No slurred speech. Course Course Course Narrative: I discussed the physical exam with the patient, patient will take ibuprofen scheduled for 24 hours and will also ice his foot for 15 minutes every 2 hours. Patient instructed to follow-up with his primary care physician. Patient states that he has been of ibuprofen prescription strength at home, states that he does not need an additional prescription Discharge Plan Discharge Clinical Impression: Acute foot pain Qualifiers: Laterality: left Qualified Code(s): M79.672 - Pain in left foot Patient Disposition: Home, Self-Care Instructions: Arthralgia (ED) Additional Instructions: use ibuprofen every 8 hours scheduled for the next 24 hours. Also, while you are awake, use ice for 15 minutes every 2 hours, apply to the sole of her foot. Please follow-up with your primary care physician tomorrow. If you have any worsening or new symptoms, please return to the emergency room or call 911 Prescriptions: No Action (DME) FreeStyle Test Strip See Rx Instructions .ROUTE .MEDSUPPLY Qty: 100 RF: 6 insulin lispro [Humalog KwikPen Insulin] 100 unit/mL insulin pen See Rx Instructions subcut TID Qty: 15 RF: 3 chlorthalidone 25 mg tablet 25 mg PO QAM Qty: 90 RF: 0 (DME) lancets [FreeStyle Lancets] 28 gauge misc See Rx Instructions .Route Qty: 100 RF: 5 (DME) pen needle, diabetic 31 gauge x 3/16 needle See Rx Instructions ea subcut TID Qty: 100 RF: 5 atorvastatin 20 mg tablet 20 mg PO DAILY Qty: 90 RF: 1 lisinopril 10 mg tablet 10 mg PO DAILY Qty: 90 RF: 1 azithromycin 250 mg tablet See Rx Instructions .ROUTE .COMPLEX Qty: 6 RF: 0 prednisone 20 mg tablet 40 mg PO DAILY Qty: 10 RF: 0 (DME) FreeStyle Lite Strips Strip See Rx Instructions strip Not Applicable TID Qty: 10 RF: 0 insulin glargine 100 unit/mL (3 mL) insulin pen 30 unit subcut BEDTIME RF: 0 Trulicity 1.5 mg/0.5 mL pen injector 1.5 mg subcut QWEEK Qty: 2 RF: 5
== END 2021-08-16 10:48 | disposition home or self-care (01) ==
PROVIDERS: Emergency Provider Emergency Medicine; PCP Internal Medicine
DX: M79.672 Pain in left foot (principal); E11.9 Type 2 diabetes mellitus without complications; I10 Essential (primary) hypertension
CPT/HCPCS: 99283

== ENCOUNTER 2021-08-18 10:01 | Outpatient (REF) | payer OTHER, SELFPAY ==
--- NOTE | ~2021-08-18 | XR_ITS ---
EXAMINATION: XR FOOT, LEFT CLINICAL INFORMATION: Pain COMPARISON: None TECHNIQUE: AP, lateral, and oblique views of the left foot. XR/XR foot LT min 3V FINDINGS/IMPRESSION: No acute fracture or dislocation. Joint spaces are maintained. Atherosclerotic vascular calcification. No tibiotalar joint effusion. Mild soft tissue swelling over the dorsum of the foot.
== END 2021-08-18 10:02 | disposition home or self-care (01) ==
LOC: HO.HMGCX 10:01
PROVIDERS: PCP Internal Medicine; Visit Provider Internal Medicine
DX: M79.672 Pain in left foot (principal)
CPT/HCPCS: 73630

== ENCOUNTER 2022-04-10 07:35 | Outpatient (REF) | payer OTHER, SELFPAY ==
[2022-04-10 11:19] LABS: MANUAL DIFF FLAG NO
[2022-04-10 11:34] LABS: Basophils Percent Auto 0.4 % (0-2); Eosinophils Absolute Auto 0.3 X10*3/uL (0.0-0.4); Eosinophils Percent Auto 3.9 % (0-4); Hematocrit 39.6 % (42.0-52.0); Hemoglobin 12.6 g/dl (14.0-18.0); Imm Gran Abs Auto 0.02 X10*3/uL (0.00-0.03); Imm Gran Pct Auto 0.2 % (0.0-0.4); Lymphocytes Absolute Auto 1.5 X10*3/uL (1.2-4.9); Lymphocytes Percent Auto 18.1 % (20-40); Mean Corpuscular HGB Conc 31.8 g/dl (31.0-36.0); Mean Corpuscular Hemoglobin 26.9 pg (27.0-33.0); Mean Corpuscular Volume 84.6 fL (80.0-98.0); Mean Platelet Volume 10.8 fL (9.4-12.4); Monocytes Absolute Auto 0.7 X10*3/uL (0.1-1.2); Monocytes Percent Auto 8.2 % (2-11); Neutrophils Absolute Auto 5.5 x10*3/uL (2.0-8.3); Neutrophils Percent Auto 69.2 % (45-73); Platelet Count 264 X10*3/uL (160-400); Red Blood Count 4.68 X10*6/uL (4.60-5.80); Red Cell Distribution Width 14.6 % (11.0-16.0)
[2022-04-10 11:38] LABS: Estimated Average Glucose 197 mg/dL; Hemoglobin A1c % 8.5 %
[2022-04-10 12:10] LABS: Alanine Aminotransferase 10 U/L (0-40); Albumin Level 3.5 g/dL (3.5-5.0); Alkaline Phosphatase 113 U/L (39-117); Anion Gap 15 (12-20); Aspartate Amino Transferase 18 U/L (5-37); Bilirubin Total 0.3 mg/dL (0.0-1.0); Blood Urea Nitrogen 55 mg/dL (9-16); Calcium 8.6 mg/dL (8.4-10.2); Carbon Dioxide 22 mmol/L (22-29); Chloride 110 mmol/L (96-108); Cholesterol 123 mg/dL; Estimated Glomerular Filt Rate 23; Glucose Fasting 124 mg/dL (60-99); HDL Cholesterol 35 mg/dL; LDL Cholesterol Calculated 45 mg/dl; Sodium 143 mmol/L (135-145); Total Protein 6.2 g/dL (6.5-8.0); Triglycerides 219 mg/dL
[2022-04-10 12:43] LABS: Creatinine Urine 77.68 mg/dL
[2022-04-10 13:15] LABS: Microalbum/Creatinine Ratio Ur 4123.3 ug/mg cr
== END 2022-04-10 07:36 | disposition home or self-care (01) ==
LOC: HO.HMGCLDS 07:35
PROVIDERS: PCP Internal Medicine; Visit Provider Internal Medicine
DX: E78.5 Hyperlipidemia, unspecified (principal); I25.10 Atherosclerotic heart disease of native coronary artery without angina pectoris; E11.22 Type 2 diabetes mellitus with diabetic chronic kidney disease; N18.4 Chronic kidney disease, stage 4 (severe); Z79.4 Long term (current) use of insulin
CPT/HCPCS: 36415; 80053; 80061; 82043; 83036; 85025

== ENCOUNTER → 2022-04-11 07:49 | Outpatient (BNVA) | payer OTHER, SELFPAY | PROVIDERS: PCP Internal Medicine; Visit Provider Internal Medicine Endocrinology, Diabetes & Metabolism | DX: E11.9 Type 2 diabetes mellitus without complications (principal); Z79.4 Long term (current) use of insulin | CPT/HCPCS: 82947 ==

== ENCOUNTER 2022-05-15 09:31 | Outpatient (REF) | payer OTHER, SELFPAY ==
[2022-05-15 13:48] LABS: Influenza A PCR NEGATIVE (Negative); Influenza B PCR NEGATIVE (Negative); Resp Syncy Virus RNA Qual PCR NEGATIVE (Negative); SARS COV2 PCR INHOUSE NEGATIVE (Negative)
== END 2022-05-15 09:32 | disposition home or self-care (01) ==
LOC: HO.LAB 09:31
PROVIDERS: Visit Provider Nurse Practitioner Family
DX: Z20.822 Contact with and (suspected) exposure to COVID-19 (principal); R09.89 Other specified symptoms and signs involving the circulatory and respiratory systems
CPT/HCPCS: 0241U

== ENCOUNTER 2022-05-20 10:41 | Emergency (ER) | payer OTHER, SELFPAY ==
--- NOTE | ~2022-05-20 | CT_ITS ---
EXAMINATION: CT HEAD WITHOUT CONTRAST CLINICAL INFORMATION: Severe left-sided headache COMPARISON: None TECHNIQUE: Contiguous axial imaging was performed from the skull base to vertex without intravenous administration of contrast. This CT examination was performed using dose optimization techniques as appropriate, variously including the following: *Automated exposure control *Adjustment of mA and/or kV according to patient size (this includes techniques or standardized protocols for targeted exams where dose is matched to indication/reason for exam; i.e. extremities or head) *Use of iterative reconstruction technique DLP: 793 mGy-cm FINDINGS: There is no evidence of an extra-axial collection. There is no evidence of intra-axial or extra-axial hemorrhage. The ventricles and extra-axial CSF spaces are appropriate. Potts-white matter differentiation is normal. No mass, mass effect or infarct is seen. No skull fracture. There are inflammatory changes of the right maxillary sinus. Paranasal sinuses, mastoid air cells and middle ears are otherwise clear. CT/CT head/brain wo IV con IMPRESSION: No acute intracranial findings. Inflammatory changes of the right maxillary sinus.
[2022-05-20 10:45] VITALS: BP 147/87; PULSE 92; RESP 18; TEMP 36.7; O2SAT 98; BMI 33.7
--- NOTE | 2022-05-20 11:54 | ED_ITS ---
HPI - Headache General Chief Complaint: Headache Stated Complaint: headache Time Seen by Provider: 05/20/22 11:51 Source: patient Mode of arrival: ambulatory Limitations: no limitations History of Present Illness HPI Narrative: 52 yo male with history of DM2, HLD, CAD, CKD, HTN, CHF who presents to the ER with a severe 10/10 left sided headache. He reports on 05/10 the head gradually began on his left side, behind his left eye and extending to behind his left ear. He had white nasal congestion and sinus pressure. He saw his provider and was prescribed a z-pack. He reports no improvement in his headache. The last few nights the pain has been so bad he has been vomiting. He denies a history of headaches like this before. No weakness, numbness, tingling in his extremities and he has had no gait instability. MD elicited complaint: headache Onset (ago): day(s) (10) Onset description: gradually Location: left, frontal and occipital Severity: severe Pain scale (0-10): 10 Quality & Timing: aching and sharp Exacerbating factors: light and noise Relieving factors: nothing Context: recent URI Associated symptoms: photophobia, sensitivity to sound and eye pain Treatments prior to arrival: ibuprofen Related Data Home Medications Medication Instructions Recorded Confirmed blood sugar diagnostic #10 ea 07/13/20 05/15/22 Previous Rx's Medication Instructions Recorded blood sugar diagnostic (FreeStyle #100 ea 08/26/20 Test strips) lancets 28 gauge (FreeStyle #100 ea 04/19/21 Lancets) glucagon 3 mg/actuation nasal 3 mg intranasal ONCE #2 ea 04/11/22 spray (Baqsimi) dulaglutide 0.75 mg/0.5 mL 0.75 mg (0.5 mL) subcut QWEEK #2 mL 04/17/22 subcutaneous pen injector ([facility]) flash glucose sensor (FreeStyle #2 ea 04/18/22 Sarita 2 Sensor kit) azithromycin 250 mg tablet See Rx Instructions PO .COMPLEX #6 05/15/22 (Zithromax Z-Cayetano) tabs Humalog KwikPen Insulin 100 See Rx Instructions subcut TID #15 05/16/22 unit/mL subcutaneous (insulin mL lispro) aspirin 81 mg tablet,delayed 81 mg PO DAILY #30 tabs 05/16/22 release atorvastatin 80 mg tablet 80 mg PO DAILY #30 tabs 05/16/22 carvedilol 12.5 mg tablet 12.5 mg PO BID #60 tabs 05/16/22 sacubitril 24 mg-valsartan 26 mg 1 tab PO BID #60 tabs 05/16/22 tablet (Entresto) torsemide 20 mg tablet 20 mg PO DAILY #30 tabs 05/16/22 insulin glargine 100 unit/mL (3 30 unit (0.3 mL) subcut BEDTIME 05/18/22 mL) subcutaneous pen #30 mL pen needle, diabetic 31 gauge x #400 ea 05/18/22 3/16 amoxicillin 500 mg-potassium 1 tab PO BID #20 tabs 05/20/22 clavulanate 125 mg tablet (Augmentin) nozaqmlqhl-ftbkiaytwdngx-ndzvwpgs 1 cap PO Q8H PRN headache #10 caps 05/20/22 50 mg-300 mg-40 mg capsule (Fioricet) fluticasone propionate 50 1 spray intranasal BID #16 grams 05/20/22 mcg/actuation nasal spray,suspension (Flonase Allergy Relief) Allergies Allergy/AdvReac Type Severity Reaction Status Date / Time No Known Allergies Allergy Verified 05/15/22 09:35 Review of Systems Review of Systems: Constitutional: No Fever, No Chills ENT/Mouth: No sore throat, No Rhinorrhea, No Swallowing Difficulty Eyes: + Eye Pain, No Swelling, No Redness Cardiovascular: No Chest Pain, No SOB, No Orthopnea, No Edema Respiratory: No Cough, No Sputum, No Wheezing, No dyspnea Gastrointestinal: + Nausea, + Vomiting, No Diarrhea, No abdominal Pain Genitourinary: No Dysuria, No Urinary Frequency, No Hematuria Musculoskeletal: No joint pain, No Myalgias Skin: No Skin Lesions, No rash Neuro: No Weakness, No Numbness, No Dizziness, + Headache Heme/Lymph: No Bruising, No Lymphadenopathy PMFSH Past Medical History Medical History (Updated 05/20/22 @ 14:53 by EDITH Estrella) Dyslipidemia Essential hypertension Left foot pain Type 2 diabetes mellitus, with long-term current use of insulin Surgical History History of cataract Family History Family History Father Diabetes mellitus Mother Myocardial infarction CVD (cardiovascular disease) Maternal Grandmother Diabetes mellitus HTN (hypertension) Alzheimer's disease Hyperlipidemia Maternal Grandfather Myocardial infarction Social History Social History Housing: Apartment Alcohol intake: never Patient Tobacco Use Status: Never used Tobacco e-Cigarette/Vaping Use: Never Used Second Hand Smoke Exposure: No Advance Directives: No Advance Directives Information Provided: No service: No Current occupational status: employed Cognitive needs: No Hearing needs: No Vision needs: No Physical Exam Vital Signs: Vital Signs: Last Vital Signs Temp 98.7 F 05/20/22 12:19 Pulse 88 05/20/22 14:27 Resp 16 05/20/22 14:27 BP 129/80 05/20/22 14:27 Pulse Ox 100 05/20/22 14:27 O2 Del Method 05/20/22 14:27 BMI result Body Mass Index 33.7 Appearance: Alert. Oriented X3. No acute distress. Head: normocephalic, atraumatic. no temporal tenderness over temporal artery Eyes: Pupils equal, round and reactive to light. ENT: Pharynx normal. left frtonal and maxillary sinuses are tender. nasal turbin ates are erythematous with white nasal discharge. normal TMs bilaterally. Neck: Normal inspection. Neck supple. CVS: Normal heart rate and rhythm. Pulses normal. Respiratory: No respiratory distress. Breath sounds normal. Abdomen: Soft and nontender. +BS x4 Skin: Skin warm and dry. Normal skin color. Normal skin turgor. No rashes. Extremities: No lower extremity edema. Neuro: Oriented X 3. No motor deficit. No sensory deficit. Normal speech and cognition. Course Course Course Narrative: He 52-year-old male with history of CKD, CHF, CAD, HTN, HLD, dm who presents to the ER with severe left-sided headache associated with photophobia, light sensitivity, sinus pain and pressure with nasal congestion. He has no neurological deficits. He has never had a headache with this before and rates it a 10/10. Doubt sub arachnoid hemorrhage but given his description of the severe pain will get a CT scan for further evaluation. Reevaluation(s) Reevaluation #1: CT scan is showing some sinus disease. No improvement with IV Benadryl and Reglan. Unable to give Toradol due to CKD. Will give a dose of IV Dilaudid and reassess. Reevaluation #2: Significant improvement in his pain with Dilaudid. He would like to go home. Will prescribe antibiotics for sinusitis as well as headaches. He is stable for discharge home with outpatient follow-up. Patient agrees with plan. MDM - Headache Lab Data Result diagrams: 05/20/22 12:44 05/20/22 12:44 Labs: Lab Results 05/20/22 05/20/22 05/20/22 Range/Units 11:59 11:59 12:44 WBC 9.0 (4.8-10.8) X10*3/uL RBC 4.73 (4.60-5.80) X10*6/uL Hgb 12.8 L (14.0-18.0) g/dl Hct 39.5 L (42.0-52.0) % MCV 83.5 (80.0-98.0) fL MCH 27.1 (27.0-33.0) pg MCHC 32.4 (31.0-36.0) g/dl RDW 15.0 (11.0-16.0) % Plt Count 249 (160-400) X10*3/uL MPV 8.6 L (9.4-12.4) fL Immature Gran % (Auto) 0.4 (0.0-0.4) % Neut % (Auto) 82.9 H (45-73) % Lymph % (Auto) 8.8 L (20-40) % [place] % (Auto) 4.9 (2-11) % Eos % (Auto) 2.7 (0-4) % Baso % (Auto) 0.3 (0-2) % Lymph # (Auto) 0.8 L (1.2-4.9) X10*3/uL [place] # (Auto) 0.4 (0.1-1.2) X10*3/uL Eos # (Auto) 0.2 (0.0-0.4) X10*3/uL Baso # (Auto) 0.0 (0.0-0.2) X10*3/uL Abs Immat Gran (auto) 0.04 H (0.00-0.03) X10*3/uL Absolute Neuts (auto) 7.4 (2.0-8.3) x10*3/uL Absolute Nucleated RBC 0.000 (0.0-0.012) X10*3/uL Nucleated RBC % (auto) 0.0 (0.0-0.2) /100WBC Sodium (135-145) mmol/L Potassium (3.3-5.1) mmol/L Chloride (96-108) mmol/L Carbon Dioxide (22-29) mmol/L Anion Gap (12-20) BUN (9-16) mg/dL Creatinine (0.5-1.4) mg/dL Estim Creat Clear Calc Estimated GFR Random Glucose (60-115) mg/dL Calcium (8.4-10.2) mg/dL COVID-19 (PB) Negative (Negative) COVID-19 Clin Com See Note Influenza Type A (ENIO) Negative (Negative) Influenza Type B (ENIO) Negative (Negative) Influenza A & B Note See Note 05/20/22 Range/Units 12:44 WBC (4.8-10.8) X10*3/uL RBC (4.60-5.80) X10*6/uL Hgb (14.0-18.0) g/dl Hct (42.0-52.0) % MCV (80.0-98.0) fL MCH (27.0-33.0) pg MCHC (31.0-36.0) g/dl RDW (11.0-16.0) % Plt Count (160-400) X10*3/uL MPV (9.4-12.4) fL Immature Gran % (Auto) (0.0-0.4) % Neut % (Auto) (45-73) % Lymph % (Auto) (20-40) % [place] % (Auto) (2-11) % Eos % (Auto) (0-4) % Baso % (Auto) (0-2) % Lymph # (Auto) (1.2-4.9) X10*3/uL [place] # (Auto) (0.1-1.2) X10*3/uL Eos # (Auto) (0.0-0.4) X10*3/uL Baso # (Auto) (0.0-0.2) X10*3/uL Abs Immat Gran (auto) (0.00-0.03) X10*3/uL Absolute Neuts (auto) (2.0-8.3) x10*3/uL Absolute Nucleated RBC (0.0-0.012) X10*3/uL Nucleated RBC % (auto) (0.0-0.2) /100WBC Sodium 143 (135-145) mmol/L Potassium 4.9 D (3.3-5.1) mmol/L Chloride 113 H (96-108) mmol/L Carbon Dioxide 21 L (22-29) mmol/L Anion Gap 14 (12-20) BUN 55 H (9-16) mg/dL Creatinine 2.67 H (0.5-1.4) mg/dL Estim Creat Clear Calc 34.8 Estimated GFR 25 Random Glucose 136 H (60-115) mg/dL Calcium 8.5 (8.4-10.2) mg/dL COVID-19 (PB) (Negative) COVID-19 Clin Com Influenza Type A (ENIO) (Negative) Influenza Type B (ENIO) (Negative) Influenza A & B Note Discharge Plan Discharge Clinical Impression: Headache, Sinusitis Patient Disposition: Home, Self-Care Instructions: Sinusitis (ED), General Headache (ED) Additional Instructions: Take the prescribed antibiotic as directed for the next 10 days Take the prescribed medication as needed for headache Use the nasal spray as directed Rest and drink plenty of fluids Follow up with your doctors If you develop new or worsening symptoms call 911 or come back to the ER for further evaluation. Prescriptions: New amoxicillin-pot clavulanate [Augmentin] 500-125 mg tablet 1 tab PO BID Qty: 20 0RF cahzwvxgsa-zsiekiexgjcah-wrov [Fioricet] 50-300-40 mg capsule 1 cap PO Q8H PRN (Reason: headache) Qty: 10 0RF fluticasone propionate [Flonase Allergy Relief] 50 mcg/actuation spray,suspension 1 spray intranasal BID Qty: 16 0RF Rx Instructions: administer into each nostril No Action (DME) FreeStyle Test Strip See Rx Instructions .ROUTE .MEDSUPPLY Qty: 100 6RF Rx Instructions: Check blood sugar twice a day before meals as directed (DME) lancets [FreeStyle Lancets] 28 gauge misc See Rx Instructions .Route Qty: 100 5RF Rx Instructions: Check sugar three times a day before meals Trulicity 0.75 mg/0.5 mL pen injector 0.75 mg subcut QWEEK Qty: 2 5RF (DME) FreeStyle Sarita 2 Sensor Kit See Rx Instructions .Route Qty: 2 3RF Rx Instructions: apply every 2 weeks to monitor blood sugar insulin lispro [Humalog KwikPen Insulin] 100 unit/mL insulin pen See Rx Instructions subcut TID Qty: 15 3RF Rx Instructions: 3 times a day with meals per sliding scale coverage subcut aspirin 81 mg tablet,delayed release (DR/EC) 81 mg PO DAILY Qty: 30 5RF atorvastatin 80 mg tablet 80 mg PO DAILY Qty: 30 4RF carvedilol 12.5 mg tablet 12.5 mg PO BID Qty: 60 0RF Rx Instructions: pls request future refills from his solid waste engineer at [facility] Entresto 24-26 mg tablet 1 tab PO BID Qty: 60 0RF torsemide 20 mg tablet 20 mg PO DAILY Qty: 30 0RF Rx Instructions: pls request future refills from his solid waste engineer at [facility] insulin glargine 100 unit/mL (3 mL) insulin pen 30 unit subcut BEDTIME Qty: 30 1RF Rx Instructions: Lantus (DME) pen needle, diabetic 31 gauge x 3/16 needle See Rx Instructions subcut TID Qty: 400 1RF Rx Instructions: Use to administer insulin 4 times per day (DME) FreeStyle Lite Strips Strip See Rx Instructions Not Applicable TID Qty: 10 Rx Instructions: As directed azithromycin [Zithromax Z-Cayetano] 250 mg tablet See Rx Instructions PO .COMPLEX Qty: 6 0RF Rx Instructions: For 250 mg dose pack: take 500 mg today (day 1), then 250 mg for 4 days (days 2-5) PO Baqsimi 3 mg/actuation spray,non-aerosol 3 mg intranasal ONCE Qty: 2 4RF
[2022-05-20 12:19] VITALS: BP 146/78; PULSE 87; TEMP 37.1; O2SAT 95
[2022-05-20 12:26] LABS: COVID-19 Test Negative (Negative); IDNOW Serial# 16C4AD1C; IDNOW Serial# 9DB6401D
[2022-05-20 12:27] LABS: Influenza A Negative (Negative); Influenza B2 Negative (Negative)
[2022-05-20 12:48] LABS: MANUAL DIFF FLAG NO
[2022-05-20 12:49] LABS: Basophils Percent Auto 0.3 % (0-2); Eosinophils Absolute Auto 0.2 X10*3/uL (0.0-0.4); Eosinophils Percent Auto 2.7 % (0-4); Hematocrit 39.5 % (42.0-52.0); Hemoglobin 12.8 g/dl (14.0-18.0); Imm Gran Abs Auto 0.04 X10*3/uL (0.00-0.03); Imm Gran Pct Auto 0.4 % (0.0-0.4); Lymphocytes Absolute Auto 0.8 X10*3/uL (1.2-4.9); Lymphocytes Percent Auto 8.8 % (20-40); Mean Corpuscular HGB Conc 32.4 g/dl (31.0-36.0); Mean Corpuscular Hemoglobin 27.1 pg (27.0-33.0); Mean Corpuscular Volume 83.5 fL (80.0-98.0); Mean Platelet Volume 8.6 fL (9.4-12.4); Monocytes Absolute Auto 0.4 X10*3/uL (0.1-1.2); Monocytes Percent Auto 4.9 % (2-11); Neutrophils Absolute Auto 7.4 x10*3/uL (2.0-8.3); Neutrophils Percent Auto 82.9 % (45-73); Platelet Count 249 X10*3/uL (160-400); Red Blood Count 4.73 X10*6/uL (4.60-5.80)
[2022-05-20] MEDS: Acetaminophen 325 MG TABLET 975 MG PO (13:04)
[2022-05-20] MEDS: Metoclopramide HCl 10 MG/2 ML VIAL IVPUSH (13:05)
[2022-05-20] MEDS: diphenhydrAMINE HCL 50 MG/ML VIAL IVPUSH (13:05)
[2022-05-20 13:16] LABS: Anion Gap 14 (12-20); Blood Urea Nitrogen 55 mg/dL (9-16); Calcium 8.5 mg/dL (8.4-10.2); Carbon Dioxide 21 mmol/L (22-29); Chloride 113 mmol/L (96-108); Creatinine Clr Calc Pharmacy 34.8; Estimated Glomerular Filt Rate 25; Glucose Random 136 mg/dL (60-115); Potassium 4.9 mmol/L (3.3-5.1); Sodium 143 mmol/L (135-145)
[2022-05-20 14:27] VITALS: BP 129/80; PULSE 88; RESP 16; O2SAT 100
[2022-05-20] MEDS: HYDROmorphone HCl 1 MG/ML SYRINGE IVPUSH (14:29)
== END 2022-05-20 15:11 | disposition home or self-care (01) ==
PROVIDERS: Physician Assistant; Emergency Provider Emergency Medicine; PCP Internal Medicine
DX: J32.8 Other chronic sinusitis (principal); R51.9 Headache, unspecified; Z20.822 Contact with and (suspected) exposure to COVID-19; E11.22 Type 2 diabetes mellitus with diabetic chronic kidney disease; I13.0 Hypertensive heart and chronic kidney disease with heart failure and stage 1 through stage 4 chronic kidney disease, or unspecified chronic kidney disease; N18.4 Chronic kidney disease, stage 4 (severe); I50.9 Heart failure, unspecified; E78.5 Hyperlipidemia, unspecified; Z79.4 Long term (current) use of insulin; Z79.82 Long term (current) use of aspirin; Z79.899 Other long term (current) drug therapy; Z79.02 Long term (current) use of antithrombotics/antiplatelets
CPT/HCPCS: 36415; 70450; 80048; 85025; 87502; 87635; 96374; 96375; 99283; 99284; J1170; J1200; J2765

== ENCOUNTER → 2022-09-20 10:18 | Outpatient (BNVA) | payer OTHER, SELFPAY | PROVIDERS: PCP Internal Medicine; Visit Provider Dietitian, Registered | DX: Z13.89 Encounter for screening for other disorder (principal) | CPT/HCPCS: 97802 ==

== ENCOUNTER → 2022-10-10 13:28 | Outpatient (BNVA) | payer OTHER, SELFPAY | PROVIDERS: PCP Internal Medicine; Visit Provider Internal Medicine Endocrinology, Diabetes & Metabolism | DX: E11.9 Type 2 diabetes mellitus without complications (principal); Z79.4 Long term (current) use of insulin | CPT/HCPCS: 82947; 83036 ==

== ENCOUNTER 2022-11-29 13:14 | Outpatient (REF) | payer OTHER, SELFPAY ==
[2022-11-29 13:42] LABS: Binax Internal Control QC Valid; Binax Now Covid-19 Ag Negative (Negative); Binax Performed by: HO.BONILM
== END 2022-11-29 13:15 | disposition home or self-care (01) ==
LOC: HO.HMGCLDS 13:14
PROVIDERS: PCP Internal Medicine; Visit Provider Emergency Medicine
DX: J06.9 Acute upper respiratory infection, unspecified (principal); Z20.822 Contact with and (suspected) exposure to COVID-19
CPT/HCPCS: 87811; C9803